=== PATIENT | female | born 1985 | race Caucasian/White ===

== ENCOUNTER 2019-09-22 07:25 | Inpatient (IN) ==
[2019-09-22] MEDS ORDERED: OXYTOCIN 30 UNITS/500 ML BAG IV PRN ×3 (09:47→17:53)
[2019-09-22] MEDS ORDERED: PENICILLIN G POTASSIUM 6 MU in DEXTROSE 5% 250 ML IV STA (09:47)
[2019-09-22] MEDS ORDERED: LACTATED RINGER'S 1,000 ML IV PRN (09:47)
[2019-09-22] MEDS ORDERED: PENICILLIN G POTASSIUM 3 MU in DEXTROSE 5% 100 ML IV PRN (09:47)
[2019-09-22 10:12] LABS: Hematocrit (blood only) 41.8 % (37-47); Hemoglobin 14.1 g/dL (12.0-16.0); Mean Corpuscular Volume 91.9 fL (80-100); Mean Platelet Volume 11.4 fL (7.4-10.4); Platelet Count 133 K/uL (130-400); RDW Coefficient of Variation 13.3 % (11.5-14.5); RDW Standard Deviation 44.7 fL (36.4-46.3); Red Blood Count 4.55 M/uL (4.2-5.4); White Blood Count 7.68 K/uL (4.8-10.8)
[2019-09-22 10:27] LABS: Mean Corpuscular Hgb Conc 33.7 g/dL (32-36)
--- NOTE | 2019-09-22 10:27 | Obstetrical Progress Note ---
Date of Service September 22, 2019 Assessment & Plan Admission and Anticipated Discharge Date Admission Date: September 22, 2019 Physical Exam Physical Exam: Admit Note 33 F P1001 at 39.1 weeks admitted for induction of labor for chronic hypertension. GBS is positive. Covid testing is negative 09/14/19. Cervix 3/70/-2/vertex/anterior/soft. EFW7.5 lbs. AROM clear fluid. Will start antibiotics. Anticipate normal delivery. Results & Data ([facility]) Vital Signs (Past 12 Hours) Vital Signs Temp Pulse Resp BP 09/22/19 07:55 37.3 C 94 H 20 119/76 09/22/19 07:40 94 H 119/76
[2019-09-22] MEDS: BUTORPHANOL TARTRATE 1 MG/ML VIAL IV PRN ×2 (12:03→14:34)
--- NOTE | 2019-09-22 13:48 | Obstetrical Progress Note ---
Date of Service September 22, 2019 Assessment & Plan Admission and Anticipated Discharge Date Admission Date: September 22, 2019 Physical Exam Genitourinary: OB Exam Abdomen: + vertex and + irregular contractions Manual OB Exam: + cervical dilation 4 cm, + cervical effacement 80%, + station - 2 and + amniotic fluid clear OB Exam Monitor Tracing: + external FHT monitor used, + external uterine monitor used, + category I and + normal FHT variability Will start Oxytocin to augment contractions Results & Data ([facility]) Vital Signs (Past 12 Hours) Vital Signs Temp Pulse Resp BP Pulse Ox 09/22/19 13:42 83 96 09/22/19 13:37 89 96 09/22/19 13:32 84 96 09/22/19 13:27 83 96 09/22/19 13:22 82 96 09/22/19 13:17 101 H 97 09/22/19 13:12 91 H 98 09/22/19 13:07 101 H 97 09/22/19 13:02 90 97 09/22/19 12:57 82 96 09/22/19 12:52 94 H 96 09/22/19 12:47 88 97 09/22/19 12:42 85 96 09/22/19 12:37 89 97 09/22/19 12:32 90 96 09/22/19 12:27 100 H 96 09/22/19 12:25 83 141/85 H 09/22/19 12:22 84 96 09/22/19 12:21 82 94 09/22/19 12:17 86 96 09/22/19 12:12 98 H 96 09/22/19 12:07 87 97 09/22/19 12:02 81 97 09/22/19 11:57 85 97 09/22/19 11:52 95 H 98 09/22/19 11:47 80 97 09/22/19 11:42 83 115/76 98 09/22/19 11:37 85 99 09/22/19 10:25 75 146/94 H 09/22/19 07:55 37.3 C 94 H 20 119/76 09/22/19 07:40 94 H 119/76
--- NOTE | 2019-09-22 16:04 | Obstetrical Progress Note ---
Date of Service September 22, 2019 Assessment & Plan Admission and Anticipated Discharge Date Admission Date: September 22, 2019 Physical Exam Genitourinary: OB Exam Abdomen: + heart tones, + vertex and + regular contractions Manual OB Exam: + cervical dilation 6 cm, + cervical effacement 80%, + station -2 and + amniotic fluid clear OB Exam Monitor Tracing: + external FHT monitor used, + external uterine monitor used, + category I and + normal FHT variability Results & Data ([facility]) Vital Signs (Past 12 Hours) Vital Signs Temp Pulse Resp BP Pulse Ox 09/22/19 15:59 87 93 09/22/19 15:58 85 94 09/22/19 15:53 87 96 09/22/19 15:48 84 97 09/22/19 15:43 86 98 09/22/19 15:34 81 93 09/22/19 15:32 83 99 09/22/19 15:27 83 96 09/22/19 15:22 80 99 09/22/19 15:17 75 96 09/22/19 15:13 77 93 09/22/19 15:12 76 94 09/22/19 15:07 72 96 09/22/19 15:02 76 96 09/22/19 14:57 84 97 09/22/19 14:52 72 96 09/22/19 14:47 82 96 09/22/19 14:42 88 97 09/22/19 14:37 77 98 09/22/19 14:33 78 124/84 09/22/19 14:32 85 97 09/22/19 14:30 36.7 C 85 20 124/84 97 09/22/19 14:27 80 97 09/22/19 14:25 73 128/87 09/22/19 14:22 84 98 09/22/19 14:17 80 97 09/22/19 14:12 86 98 09/22/19 14:07 80 97 09/22/19 14:02 103 H 97 09/22/19 13:57 74 97 09/22/19 13:52 86 96 09/22/19 13:47 97 H 131/84 97 09/22/19 13:42 83 96 09/22/19 13:37 89 96 09/22/19 13:32 84 96 09/22/19 13:27 83 96 09/22/19 13:22 82 96 09/22/19 13:17 101 H 97 09/22/19 13:12 91 H 98 09/22/19 13:07 101 H 97 09/22/19 13:02 90 97 09/22/19 12:57 82 96 09/22/19 12:52 94 H 96 09/22/19 12:47 88 97 09/22/19 12:42 85 96 09/22/19 12:37 89 97 09/22/19 12:32 90 96 09/22/19 12:27 100 H 96 09/22/19 12:25 83 141/85 H 09/22/19 12:22 84 96 09/22/19 12:21 82 94 09/22/19 12:17 86 96 09/22/19 12:12 98 H 96 09/22/19 12:07 87 97 09/22/19 12:02 81 97 09/22/19 11:57 85 97 09/22/19 11:52 95 H 98 09/22/19 11:47 80 97 09/22/19 11:42 37.0 C 91 H 18 115/76 98 09/22/19 11:37 85 99 09/22/19 10:25 37.1 C 75 20 146/94 H 09/22/19 07:55 37.3 C 94 H 20 119/76 09/22/19 07:40 37.3 C 94 H 18 119/76
[2019-09-22] MEDS ORDERED: ONDANSETRON INJ 2 MG/ML 2 ML VIAL IV PRN (16:20)
[2019-09-22] MEDS ORDERED: ONDANSETRON INJ 2 MG/ML 2 ML VIAL ONE (16:22)
[2019-09-22] MEDS ORDERED: ACETAMINOPHEN 1000 MG/100 ML IV IV ONE ×2 (16:53→17:53)
--- NOTE | 2019-09-22 17:00 | Delivery Summary ---
Vaginal Delivery Summary Date of Service September 22, 2019 Vaginal Delivery Summary Delivery Note live male CLIFF with nuchal cord x1 reduced at delivery. Delayed cord clamping done. Apgars 8/9 weight pending. Cord blood obtained followed by spontaneous delivery of intact placenta. EBL 250 ml. Final sponge and instrument count are correct. Mom and baby stable.
[2019-09-22] MEDS ORDERED: SUPERCREAM 0.870% 15 GM JAR EXT PRN (17:53)
[2019-09-22] MEDS ORDERED: DIPHTHERIA/TETANUS/PERTUSSIS 0.5 ML SYR/VIAL IM ONE (17:53)
[2019-09-22] MEDS ORDERED: bisacodyL 10 MG SUPP PR PRN (17:53)
[2019-09-22] MEDS ORDERED: BENZOCAINE 20% AER SPR 82.5 GM CAN EXT PRN (17:53)
[2019-09-22] MEDS ORDERED: HYDROCORTISONE ACETATE 25 MG SUPP PR PRN (17:53)
[2019-09-22] MEDS ORDERED: LACTATED RINGER'S 1,000 ML IV SCH (18:30)
[2019-09-22] MEDS ORDERED: LABETALOL HCL 100 MG TAB PO SCH (21:00)
[2019-09-22] MEDS: ACETAMINOPHEN 325 MG TAB PO PRN (21:10)
[2019-09-22] MEDS: DOCUSATE SODIUM 100 MG CAP PO SCH (21:14)
[2019-09-23] MEDS ORDERED: Nursing to Pharmacy Communication SCH (03:00)
[2019-09-23] MEDS: ACETAMINOPHEN 325 MG TAB PO PRN ×2 (03:22→15:22)
[2019-09-23] MEDS: TRAMADOL HCL 50 MG TABLET PO PRN ×4 (03:46→16:31)
[2019-09-23 06:54] LABS: Hematocrit (blood only) 36.6 % (37-47); Hemoglobin 12.5 g/dL (12.0-16.0); Mean Corpuscular Hemoglobin 31.3 pg (25-34); Mean Corpuscular Hgb Conc 34.2 g/dL (32-36); Mean Corpuscular Volume 91.5 fL (80-100); Mean Platelet Volume 11.6 fL (7.4-10.4); Platelet Count 112 K/uL (130-400); RDW Coefficient of Variation 13.3 % (11.5-14.5); RDW Standard Deviation 44.4 fL (36.4-46.3); White Blood Count 9.03 K/uL (4.8-10.8)
[2019-09-23] MEDS ORDERED: LABETALOL HCL 100 MG TAB PO SCH (07:00)
[2019-09-23] MEDS ORDERED: FERROUS SULFATE 325 MG TAB PO SCH (08:00)
[2019-09-23] MEDS ORDERED: PRENATAL VITAMIN 1 TAB PO SCH (08:00)
[2019-09-23] MEDS: DOCUSATE SODIUM 100 MG CAP PO SCH (08:09)
--- NOTE | 2019-09-23 08:30 | Obstetrical Progress Note ---
Date of Service September 23, 2019 Assessment & Plan Admission and Anticipated Discharge Date Admission Date: September 22, 2019 Physical Exam Physical Exam: abdomen soft and non tender no calf tenderness ambulating well vaginal bleeding scant hgb 12.5 Results & Data ([facility]) Vital Signs (Past 12 Hours) Vital Signs Temp Pulse Resp BP 09/23/19 03:25 36.6 C 80 18 150/92 H 09/23/19 00:25 36.9 C 74 16 127/85
[2019-09-23] MEDS ORDERED: MAGNESIUM OXIDE 400 MG TAB PO SCH (09:00)
[2019-09-23] MEDS ORDERED: NON-FORMULARY MEDICATION (Prenatal Vit-Iron Fum-Folic Ac [Prenatal Vitamin] 1 TAB) PO SCH (09:00)
[2019-09-23] MEDS ORDERED: bisacodyL 5 MG TABEC PO SCH (20:00)
== END 2019-09-23 18:10 | disposition home or self-care (01) | DRG 807 ==
LOC: 4S1 07:25 → 4S2 19:12